=== PATIENT | male | born 1950 | race Caucasian/White ===

== ENCOUNTER 2021-12-11 03:32 | Emergency (ER) | payer MEDICARE ==
[~2021-12-11 03:32] MED LIST: ANTIVERT 25MG T25 MG PO; AUGMENTIN 875-1 EACH PO
== END 2021-12-11 05:10 | disposition home or self-care (01) ==
LOC: ER1 03:32
DX: I10 Essential (primary) hypertension (principal); K21.9 Gastro-esophageal reflux disease without esophagitis; F17.210 Nicotine dependence, cigarettes, uncomplicated
CPT/HCPCS: 93005; 99283